=== PATIENT | male | born 2005 | race Two or more races ===

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

== ENCOUNTER → 2023-02-08 15:11 | Outpatient (BNVA) | payer OTHER, SELFPAY | PROVIDERS: Visit Provider Surgery | DX: R10.30 Lower abdominal pain, unspecified (principal) | CPT/HCPCS: 99202 ==

== ENCOUNTER → 2023-10-27 13:22 | Outpatient (BNVA) | payer OTHER, SELFPAY | PROVIDERS: PCP Pediatrics; Visit Provider Physician Assistant Surgical ==

== ENCOUNTER 2023-11-17 10:55 | Outpatient (AMB) | payer OTHER, SELFPAY ==
--- NOTE | 2023-11-17 10:57 | MHC.OFFVISWM ---
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 He heard about our program from his mother. His goal is to lose weight and achieve a healthy lifestyle. He reports first being concerned about his weight 1 year ago, highest weight to date was 256. Current weight is 251.8 pounds with a BMI of 36.1. He has tried multiple methods of weight loss including fad diets without permanent results. He lives with his mom. He works 4 days per week at [employer]. He wakes at:?530 am, and goes to bed at?10 pm. Dinner is at 530 pm. Breakfast: eggs or smoothie (frozen fruits (berries, dolores) w water) AM snack: skip Lunch: rice and beans w chicken or pasta PM snack: skip Dinner: like lunch After dinner: skip Other snacks: k pops or cookies Liquids: 120 oz water, no soda, no juice Alcohol/marijuana/tobacco intake: none Exercise: none, gym membership at [employer] GERD score: 16 ALEJANDRINA score: 0 ESS score: 12 QOL score: 99 PFSH Medical History Morbid obesity Abdominal pain Surgical History No pertinent past surgical history Social History Alcohol intake: never Patient Tobacco Use Status: Never used Tobacco Review of Systems Const All systems reviewed & are unremarkable except as noted in HPI and below Physical Exam Const General: cooperative, healthy appearing and no acute distress Orientation/consciousness: patient oriented x3 HEENT Head: Yes normal to inspection Ears: hearing grossly normal bilaterally General nose exam: Normal external nose present Face and sinus: Yes normal facial exam Eyes General: appearance normal, both eyes and all related structures Resp Effort & Inspection: normal respiratory effort Auscultation: clear to auscultation bilaterally Cardio Rate: regular rate Rhythm: regular rhythm Heart sounds: S1 normal heart sound present and S2 normal heart sound present GI Inspection: Yes normal to inspection, No distended and Yes obesity Palpation (GI): Soft to palpation, nontender and no guarding Auscultation: normal bowel sounds Skin General skin exam: no rashes or lesions noted Neuro General: patient oriented x3 Extrem General: No edema Psych Appearance: grossly normal Mental Status: mental status grossly normal Speech and movement: Normal speech and movement present Affect: normal affect Attitude: cooperative Assessment & Plan Assessment & Plan (1) Obesity (BMI 30-39.9): Code(s): E66.9 - Obesity, unspecified Plan: This is a?18 yo male who will start our MWL program.? He will be scheduled f/u appointments with our screening unit registered nurse and myself over the next 3 months. ? Adequate sleep of 7-8 hours per night discussed, awakening at 530 am and going to bed around 930-10 pm ? Purchase body composition analyzer scale ([employer] recommended) and check weight weekly. The best time to do this is first thing in the morning after going to the bathroom. 1. Nutritional counseling: Be sure to careful read the number of scoops per shake Start with 1 Celebrate Rebiuld shake ([facility] [employer], [employer], [employer]), (2 scoops in 16 oz unsweetened almond milk) at 630am-830am 2 protein bars (Celebrate bars at [facility] [employer], [employer], [employer]) First bar at 1030am-1230 pm. Second bar at 230pm-430pm Dinner at 530pm (9 forks of protein and 9 forks of salad/vegetables). Meal to include lean meat (beef, fish, pork, turkey, chicken), cooked vegetables or a salad with olive oil and/or fruits (berries, pears, apples, kiwi). Avoid salt, breads, potatoes, rice, pasta, desserts. cup of fresh fruit around 7 pm if you wish (berries, apples, pear, kiwi). Try to drink 80 oz of water daily and avoid soda and juices. ?2. Each shake would be drunk slowly, like coffee in a period of 2 hours. ?3. Cut each bar in 4 pieces and eat each piece in 30 min ?to make each bar last 2 hours. ?4. I emphasized the importance of measuring accurately the food portion and measure it carefully when serving the food on the plate ?5. The meal portions include 9 full-size forks of meat and 9 full-size forks of salad. You always eat the meat portion but you can replace up to half of the forks of salad/vegetables with rice, potatoes or pasta, or a fruit ?if you like. The less you do it the better weight loss will be. ?6. One full-size fork is what can be scooped on the fork without falling aside and not what can be bit with the fork. Use regular forks like those you find in a typical restaurant. ?7.? Please send me weight measurements as soon as possible and then once a week. Always include your diet and exercise plan. Alternatively come weekly at the office for weight checks and send me the measurements. ?8. Exercise counseling: Begin by watching a stretching for beginners video. Start slowly and begin to stretch your muscles. You should do this before and after each exercise session to prevent injury. Please return to [employer] gym near your home. Ask the field human resources manager or one of the trainers how to use the machines if you are unfamiliar with them. Start elliptical with a resistance of 2. Increase resistance by 1 every 3 min to your most comfortable resistance with a max resistance of 8. Reduce the resistance by 1 every 3 minutes back down to 2 and repeat cycles for 300 calories. Alternatively, start treadmill with a speed of 3.0 and incline of 0, increasing incline by 1 every 3 minutes to the highest comfortable level (max 8 for now) then decrease in the same fashion. Repeat process to a goal of 300 calories. Goal of 2000 calories burned or more weekly. You may also consider use of the stationary bike. The easiest would be to chose the fat-burn or interval training program on the machine and do this until you reach the 300 calorie goal. Alternatively, you can manually adjust the resistance in a similar fashion as mentioned above, (resistance of 2-8 with a goal speed of 12 mph). Tracking calories is essential. 9. Alternatively start walking outside daily, tracking calories with a goal of 300 calories per day, daily. You can download the [employer] which can track your time, distance and calories while walking outside. You press start in the [employer]ington when you start and then stop when you are finished. 10.? It is important to communicate by text weekly 11. I will order the home sleep study to look for sleep apnea (decrease in oxygen levels at night), given your complaints of snoring and daytime sleepiness. 12. Discussed and answered all questions regarding?obtained consent to participate in the [facility]?Registry. 13. Please follow the diet plan exactly, without any change. If you do not like something about the plan or you feel hungry, you need to communicate with me so I can help you revise the plan. You should not change the plan yourself. Text me at [phone] 14. Goal is to lose at least 10-12 pounds in the first month Patient is morbidly obese and is not considered stable at this time.?I spent a total of 70 minutes reviewing/updating records, examining the patient and counseling the patient on weight management as detailed above. Orders: Orders RT home sleep study Today E66.9 - Obesity, unspecified, R06.83 - Snoring, R40.0 - Somnolence Referrals Nutrition/Dietitian Referral E66.9 - Obesity, unspecified, R06.83 - Snoring, R40.0 - Somnolence Coding Level of Care Code New Pt Level 5 (23252) Diagnoses Obesity (BMI 30-39.9) E66.9 Time Spent (min) 70
[2023-11-17 11:04] VITALS: BP 128/89; PULSE 87; TEMP 36.3; O2SAT 95; BMI 36.1
== END 2023-11-17 12:01 | disposition home or self-care (01) ==
PROVIDERS: PCP Pediatrics; Visit Provider Physician Assistant Surgical
DX: E66.9 Obesity, unspecified (principal); Z68.36 Body mass index [BMI] 36.0-36.9, adult
CPT/HCPCS: 99205

== ENCOUNTER → 2023-11-17 10:55 | Outpatient (BNVA) | payer OTHER, SELFPAY | PROVIDERS: PCP Pediatrics; Visit Provider Physician Assistant Surgical | DX: E66.9 Obesity, unspecified (principal); Z68.36 Body mass index [BMI] 36.0-36.9, adult | CPT/HCPCS: 99202 ==

== ENCOUNTER 2024-01-25 08:24 | Emergency (ER) | payer OTHER, SELFPAY ==
[2024-01-25 08:27] VITALS: BP 122/75; PULSE 114; RESP 19; TEMP 36.6; O2SAT 99; BMI 35.9
[2024-01-25 08:42] LABS: MANUAL DIFF FLAG NO
[2024-01-25 08:49] LABS: Basophils Percent Auto 0.3 % (0-2); Eosinophils Absolute Auto 0.3 X10*3/uL (0.0-0.4); Hematocrit 45.6 % (42.0-52.0); Hemoglobin 16.4 g/dl (14.0-18.0); Imm Gran Abs Auto 0.02 X10*3/uL (0.00-0.03); Imm Gran Pct Auto 0.2 % (0.0-0.4); Lymphocytes Absolute Auto 0.9 X10*3/uL (1.2-4.9); Lymphocytes Percent Auto 10.4 % (20-40); Mean Corpuscular Hemoglobin 29.7 pg (27.0-33.0); Mean Corpuscular Volume 82.5 fL (80.0-98.0); Mean Platelet Volume 9.3 fL (9.4-12.4); Monocytes Absolute Auto 0.7 X10*3/uL (0.1-1.2); Monocytes Percent Auto 8.6 % (2-11); Neutrophils Absolute Auto 6.6 x10*3/uL (2.0-8.3); Neutrophils Percent Auto 77.5 % (45-73); Platelet Count 247 X10*3/uL (160-400); Red Blood Count 5.53 X10*6/uL (4.60-5.80); Red Cell Distribution Width 11.7 % (11.0-16.0); White Blood Count 8.6 X10*3/uL (4.8-10.8)
[2024-01-25 08:57] LABS: Alanine Aminotransferase 29 U/L (0-40); Albumin Level 4.7 g/dL (3.5-5.0); Alkaline Phosphatase 64 U/L (39-117); Anion Gap 13 (12-20); Aspartate Amino Transferase 27 U/L (5-37); Bilirubin Direct 0.4 mg/dL (0.0-0.5); Bilirubin Total 1.1 mg/dL (0.0-1.0); Blood Urea Nitrogen 10 mg/dL (9-16); Carbon Dioxide 25 mmol/L (22-29); Chloride 108 mmol/L (96-108); Creatinine Clr Calc Pharmacy 168.8; Estimated Glomerular Filt Rate > 60; Glucose Random 96 mg/dL (60-115); Lipase 13 U/L (8-78); Potassium 3.9 mmol/L (3.3-5.1); Sodium 142 mmol/L (135-145); Total Protein 7.9 g/dL (6.5-8.0)
[2024-01-25 09:08] LABS: IDNOW Serial# 08D9AD1C; Strep A Nucleic Acid Negative (Negative)
--- NOTE | 2024-01-25 09:24 | ED.GENADULT ---
HPI - General Adult General Chief complaint: Abdominal Pain Stated complaint: Headache, abd pain Time Seen by Provider: 01/25/24 09:24 Source: patient Mode of arrival: ambulatory Limitations: no limitations History of Present Illness HPI narrative: Patient is a 18-year-old male presenting to the emergency department with 2-3 days a of scratchy throat which he relates to seasonal allergies and epigastric pain. States that he woke at 3:00 a.m. this morning with epigastric abdominal pain, describes as burning sensation. Denies any nausea or vomiting. Denies any diarrhea or constipation. Denies fevers. Denies any chest pain or shortness of breath, palpitations. States he has been using loratadine for his allergy symptoms, also used an unknown inhaler which his grandmother brought over from [place]. Has not taken any other jjbu-xwl-vdoisdp medications for his symptoms. MD complaint: Epigastric pain Onset (ago): hour(s) Location: abdomen Radiation: non-radiation Quality: burning Pain Consistency: colicky Related Data Previous Rx's ?Medication ?Instructions ?Recorded rjlntynvwd-lavvgofxtwxmp-zgtchijm 1 tab PO Q6H PRN headache #10 tabs 04/16/22 50 mg-325 mg-40 mg tablet famotidine 20 mg tablet 20 mg PO BID #14 tabs 01/25/24 fluticasone furoate 27.5 2 spray intranasal DAILY #5.9 mL 01/25/24 mcg/actuation nasal spray,suspension (Flonase Sensimist) Allergies Allergy/AdvReac Type Severity Reaction Status Date / Time No Known Allergies Allergy Verified 01/25/24 08:29 [No Known Allergies*] Review of Systems Review of Systems: As per HPI. Yes all other systems are reviewed and are negative Constitutional: Constitutional: Reports as per HPI [facility] Past Medical History Medical History Morbid obesity Abdominal pain Surgical History No pertinent past surgical history Social History Social History Alcohol intake: never Patient Tobacco Use Status: Never used Tobacco Advance Directives: No Do you have a plan to hurt others: No Plan Physical Exam ED Vital Signs: Vital Signs - 24 hr 01/25/24 08:27 Temperature 98 F Pulse Rate 114 H Respiratory Rate 19 Blood Pressure 122/75 Pulse Oximetry 99 Oxygen Delivery Method Room Air BMI result Body Mass Index 35.9 Vital signs have been reviewed and appear to be correct. Blood pressure normal. Heart rate mildly tachycardic. Respiratory rate normal. Temperature normal. Oxygen saturation normal. Const General: cooperative, healthy appearing and no acute distress Orientation/consciousness: oriented to person, oriented to place, oriented to time and patient oriented x3 Limitations: no limitations HENMT Head: Yes normocephalic and Yes atraumatic Ears: external ears normal General nose exam: Normal external nose present Face and sinus: Yes face symmetric Mouth: oropharynx normal and moist mucous membranes Throat: Yes uvula midline Eyes Pupils: Equal, round and reactive pupils present Neck Neck: Yes normal visual inspection and Yes supple Resp Effort & Inspection: normal respiratory effort and able to speak in complete sentences Auscultation: clear to auscultation bilaterally Cardio Rate: regular rate Rhythm: regular rhythm Heart sounds: S1 normal heart sound present and S2 normal heart sound present GI Inspection: Yes normal to inspection Palpation (GI): Soft to palpation, Tenderness to palpation present (GI) in the epigastrum (mild), no guarding and No Rebound tenderness present Auscultation: normoactive bowel sounds General: Yes no CVA tenderness Back/Spine/Pelvis Back: no CVA tenderness Skin General skin exam: elasticity normal and turgor normal Neuro General: oriented to person, oriented to place, oriented to time, patient oriented x3, moves all extremities, no focal motor deficits and CN's II-XI intact bilaterally Cranial nerves: Yes Equal, round and reactive pupils present Cognition (Neuro): normal cognition Extrem General: Yes full ROM, Yes no pedal edema and Yes no calf tenderness Psych Mental Status: mental status grossly normal Affect: normal affect Thought process: Normal thought process present Medications Administered Discontinued Medications Generic Name Dose Route Start Last Admin Trade Name Famq PRN Reason Stop Dose Admin Al Hydroxide/Mg Hydroxide 15 ml 01/25/24 09:59 01/25/24 11:07 Magnesium Hydrox/Alum Hydrox 30 Ml Oral.Susp PO 01/25/24 10:00 15 ml ONCE ONE Administration Lidocaine HCl 5 ml 01/25/24 09:59 01/25/24 11:07 Lidocaine Hcl Viscous 2 % 15 Ml Solution MUCOUS MEM 01/25/24 10:00 5 ml ONCE ONE Administration Medical Decision Making Medical Decision Making [facility] Narrative: Patient is a 18-year-old male presenting to the emergency department with 2-3 days a of scratchy throat which he relates to seasonal allergies as well as epigastric abdominal pain. On exam patient is awake, A+Ox3, VS WNL, afebrile, normal neurological exam without focal deficits, physical exam findings as above. Given reported symptoms and physical exam findings, initial differential includes viral illness, strep pharyngitis, allergic rhinitis, gastritis, GERD, PUD. Labs unremarkable. Viral serology negative. Epigastric pain improved with medications given in the emergency department. Feel symptoms are likely due to gastritis. Will send prescription for famotidine. Will also send prescription for Flonase as patient is unsure what type of nasal inhaler he is using. Advised patient to discontinue the previous inhaler. Instructed patient to follow-up with primary care provider. Return precautions discussed at bedside. Patient verbalized understanding of and agreement with plan. Differential Diagnosis Differential Diagnoses: The differential diagnosis associated with the presentation includes As per MDM. Lab Data [facility] Lab Attestation statement: I reviewed the patient's lab results. As per [facility]. 01/25/24 08:39 01/25/24 08:39 Labs: Lab Results 01/25/24 Range/Units 08:39 WBC 8.6 (4.8-10.8) X10*3/uL RBC 5.53 (4.60-5.80) X10*6/uL Hgb 16.4 (14.0-18.0) g/dl Hct 45.6 (42.0-52.0) % MCV 82.5 (80.0-98.0) fL MCH 29.7 (27.0-33.0) pg MCHC 36.0 (31.0-36.0) g/dl RDW 11.7 (11.0-16.0) % Plt Count 247 (160-400) X10*3/uL MPV 9.3 L (9.4-12.4) fL Immature Gran % (Auto) 0.2 (0.0-0.4) % Neut % (Auto) 77.5 H (45-73) % Lymph % (Auto) 10.4 L (20-40) % [place] % (Auto) 8.6 (2-11) % Eos % (Auto) 3.0 (0-4) % Baso % (Auto) 0.3 (0-2) % Lymph # (Auto) 0.9 L (1.2-4.9) X10*3/uL [place] # (Auto) 0.7 (0.1-1.2) X10*3/uL Eos # (Auto) 0.3 (0.0-0.4) X10*3/uL Baso # (Auto) 0.0 (0.0-0.2) X10*3/uL Abs Immat Gran (auto) 0.02 (0.00-0.03) X10*3/uL Absolute Neuts (auto) 6.6 (2.0-8.3) x10*3/uL Absolute Nucleated RBC 0.000 (0.0-0.012) X10*3/uL Nucleated RBC % (auto) 0.0 (0.0-0.2) /100WBC Sodium 142 (135-145) mmol/L Potassium 3.9 (3.3-5.1) mmol/L Chloride 108 (96-108) mmol/L Carbon Dioxide 25 (22-29) mmol/L Anion Gap 13 (12-20) BUN 10 (9-16) mg/dL Creatinine 0.88 (0.5-1.4) mg/dL Estim Creat Clear Calc 168.8 Estimated GFR > 60 Random Glucose 96 (60-115) mg/dL Calcium 10.0 D (8.4-10.2) mg/dL Total Bilirubin 1.1 H (0.0-1.0) mg/dL Direct Bilirubin 0.4 (0.0-0.5) mg/dL AST 27 (5-37) U/L ALT 29 (0-40) U/L Alkaline Phosphatase 64 (39-117) U/L Total Protein 7.9 (6.5-8.0) g/dL Albumin 4.7 (3.5-5.0) g/dL Lipase 13 (8-78) U/L Influenza Type A (PCR) NEGATIVE (Negative) Influenza Type B (PCR) NEGATIVE (Negative) RSV RNA Qual (PCR) NEGATIVE (Negative) SARS-CoV-2 RNA (RT-PCR) NEGATIVE (Negative) S. pyogenes GrpA MANJEET Negative (Negative) External Record Review External record reviewed: Inpatient record, Office record and Outpatient record Prescription Management I considered prescription management with: Other Discharge Plan Discharge Clinical Impression: Gastritis, Seasonal allergic reaction Patient Disposition: Home, Self-Care Instructions: Gastritis (DC), Allergic Rhinitis (DC), Allergies (ED), How to Use Nasal [place] (ED) Additional Instructions: You were evaluated in the emergency department today for sore throat and abdominal pain. Your viral and strep testing was negative. Your symptoms improved with medication in the ED. You are being prescribed famotidine which you should take as prescribed for your abdominal pain. You are being prescribed Flonase for her seasonal allergies. Please follow-up your primary care provider. Return to the emergency department with new or worsening symptoms. Prescriptions: New Flonase Sensimist 27.5 mcg/actuation spray,suspension 2 spray intranasal DAILY Qty: 5.9 0RF Rx Instructions: into each nostril famotidine 20 mg tablet 20 mg PO BID Qty: 14 0RF No Action uaspbdmiov-uxzuctrvlvoyr-dtau 50-325-40 mg tablet 1 tab PO Q6H PRN (Reason: headache) Qty: 10 0RF Print Language: Mozambican
[2024-01-25 09:38] LABS: Influenza A PCR NEGATIVE (Negative); Influenza B PCR NEGATIVE (Negative); Resp Syncy Virus RNA Qual PCR NEGATIVE (Negative); SARS COV2 PCR INHOUSE NEGATIVE (Negative)
[2024-01-25] MEDS: Lidocaine HCl Viscous 2 % 15 ML SOLUTION 5 ML MUCOUS MEM (11:07)
[2024-01-25] MEDS: Magnesium Hydrox/Alum Hydrox 30 ML ORAL.SUSP 15 ML PO (11:07)
[2024-01-25 12:54] VITALS: BP 122/75; PULSE 114; RESP 19; TEMP 36.6; O2SAT 99
== END 2024-01-25 12:55 | disposition home or self-care (01) ==
PROVIDERS: Emergency Provider Emergency Medicine; PCP Pediatrics
DX: K29.70 Gastritis, unspecified, without bleeding (principal); J30.2 Other seasonal allergic rhinitis; R51.9 Headache, unspecified; R10.13 Epigastric pain; Z11.52 Encounter for screening for COVID-19; Z20.822 Contact with and (suspected) exposure to COVID-19; Z79.899 Other long term (current) drug therapy
CPT/HCPCS: 0241U; 36415; 80048; 80076; 83690; 85025; 87651; 99282; 99283

== ENCOUNTER 2024-01-30 14:30 | Emergency (ER) | payer OTHER, SELFPAY | END 2024-01-30 16:48 | disposition left against medical advice (07) | PROVIDERS: Emergency Provider Emergency Medicine | DX: Z53.21 Procedure and treatment not carried out due to patient leaving prior to being seen by health care provider (principal); R53.81 Other malaise ==

== ENCOUNTER 2024-04-27 08:42 | Emergency (ER) | payer OTHER, SELFPAY ==
[2024-04-27 08:52] VITALS: BP 125/72; PULSE 119; RESP 18; TEMP 37.7; O2SAT 98; BMI 34.9
[2024-04-27 09:20] LABS: IDNOW Serial# 08D9AD1C; Strep A Nucleic Acid Negative (Negative)
--- NOTE | 2024-04-27 09:21 | ED.URI ---
HPI - URI/Sore Throat General Chief Complaint: Upper Respiratory Symptoms Stated Complaint: URI Time Seen by Provider: 04/27/24 09:03 Source: patient Mode of arrival: ambulatory Limitations: no limitations History of Present Illness HPI Narrative: Patient is a 18-year-old male who presents emergency department for evaluation of multiple upper respiratory symptoms including intermittent headache, subjective fever but has not checked a temperature, sore throat, ear pain without any drainage or changes in hearing, body aches, intermittent nonproductive cough over the past 4 days. Denies any known sick contacts. Reports that he attempted to use Tylenol 3 days ago without improvement in his symptoms, last night took a single dose of Mucinex without improvement in his symptoms. Denies dizziness, neck pain, neck stiffness, chest pain, shortness of breath, difficulty breathing, nausea, vomiting, abdominal pain, numbness or tingling of the extremities, genitourinary symptoms. Related Data Previous Rx's ?Medication ?Instructions ?Recorded nepstfrcib-qadkywwlibsvh-uckerxan 1 tab PO Q6H PRN headache #10 tabs 04/16/22 50 mg-325 mg-40 mg tablet famotidine 20 mg tablet 20 mg PO BID #14 tabs 01/25/24 fluticasone furoate 27.5 2 spray intranasal DAILY #5.9 mL 01/25/24 mcg/actuation nasal spray,suspension (Flonase Sensimist) Allergies Allergy/AdvReac Type Severity Reaction Status Date / Time No Known Allergies Allergy Verified 04/27/24 08:55 [No Known Allergies*] Review of Systems Review of Systems: Yes all other systems are reviewed and are negative PMFSH Past Medical History Attestation statement: The following information was validated with the patient. Source: old records reviewed Medical History Morbid obesity Abdominal pain Surgical History No pertinent past surgical history Social History Social History Alcohol intake: never Patient Tobacco Use Status: Never used Tobacco Advance Directives: No Advance Directives Information Provided: No Physical Exam Vital Signs: Vital Signs: Last Vital Signs Temp 99.8 F 04/27/24 10:36 Pulse 104 H 04/27/24 10:36 Resp 18 04/27/24 10:36 BP 114/61 04/27/24 10:36 Pulse Ox 95 04/27/24 10:36 O2 Del Method Room Air 04/27/24 10:36 BMI result Body Mass Index 34.9 Appearance: Alert.?Oriented to person, place and time. No acute distress.?Normal affect. Eyes: Pupils equal, round and reactive to light.? ENT: TM normal bilaterally. Pharynx erythematous with 1+ tonsillar hypertrophy bilaterally. Uvula midline. No trismus. No drooling. Neck: Normal inspection.? Neck supple.??No cervical adenopathy CVS: Heart sounds normal. Normal heart rate and rhythm.? Pulses normal.?? Respiratory: No respiratory distress.? Lung sounds clear to auscultation bilaterally?? Abdomen: Soft and non-tender. Normoactive bowel sounds. Skin: Skin warm and dry.? Normal skin color.? ? Extremities: No lower extremity edema.? Neuro: Moves all extremities spontaneously. Sensation intact bilaterally. No motor deficits. Ambulates with normal steady gait. Medications Administered Discontinued Medications Generic Name Dose Route Start Last Admin Trade Name Freq PRN Reason Stop Dose Admin Acetaminophen 975 mg 04/27/24 09:19 04/27/24 09:38 Acetaminophen 325 Mg Tablet PO 04/27/24 09:20 975 mg ONCE ONE Administration Ibuprofen 400 mg 04/27/24 09:19 04/27/24 09:38 Ibuprofen 400 Mg Tablet PO 04/27/24 09:20 400 mg ONCE ONE Administration Medical Decision Making Medical Decision Making [facility] Narrative: Patient is a 18-year-old male presenting for evaluation of upper respiratory symptoms. COVID-19 testing negative. Influenza testing negative. Strep a testing negative, no evidence of [employer]. No evidence acute otitis media. Sutter spot negative. At this time history and physical exam not consistent with ACS/PE/pneumonia. Well-appearing, nontoxic, afebrile, no tachypnea/hypoxia. Noted to have tachycardia, which in comparison with previous visits he has also had tachycardic, he admits to feeling anxious when he is in the hospital. He was medicated with acetaminophen and ibuprofen, concern for low-grade temperature at 99.8 degrees which may continue to trend upwards, may also provide analgesia. Speaking clear full sentences, ambulatory with steady gait. Discussed conservative treatment including rest, hydration, Tylenol/ibuprofen as needed for fever and body aches, saline nasal spray, humidifier, pewf-rta-xjdaxca cold medication. Advised to follow-up with primary care provider as needed, discussed reasons to return back to the emergency department. All questions were answered. Patient discharged home in stable condition. Differential Diagnosis Differential Diagnoses: The differential diagnosis associated with the presentation includes ( See narrative above) Admission/Observation Consideration of admission/observation: Escalation of care including admission/observation considered ( see narrative above) Lab Data MDM Lab Attestation statement: I reviewed the patient's lab results. ( see narrative above) Labs: Lab Results 04/27/24 04/27/24 Range/Units 09:05 10:02 Monoscreen Negative (Negative) Influenza Type A (PCR) NEGATIVE (Negative) Influenza Type B (PCR) NEGATIVE (Negative) RSV RNA Qual (PCR) NEGATIVE (Negative) SARS-CoV-2 RNA (RT-PCR) NEGATIVE (Negative) S. pyogenes GrpA MANJEET Negative (Negative) Prescription Management I considered prescription management with: Pain Medication ( acetaminophen/ibuprofen) Discharge Plan Discharge Clinical Impression: Upper respiratory infection Patient Disposition: Home, Self-Care Instructions: Upper Respiratory Infection (ED) Additional Instructions: Be sure to rest, stay well hydrated drinking plenty of fluids, eat small frequent meals. Tylenol/ibuprofen can be used as needed for fever/pain. Xuzn-yrp-zsdvkuv cold medications may be helpful as well for symptoms. Saline nasal spray, humidifier may be helpful for nasal congestion. You may return to the emergency department with any new or worsening symptoms or concerns. Follow-up with your primary care provider as needed. Should remain out of school/ work until symptoms have resolved and have been without a fever for 24 hours without the use of Tylenol or ibuprofen. Prescriptions: No Action haqediuhaq-qqbpnrloxluxd-szjb 50-325-40 mg tablet 1 tab PO Q6H PRN (Reason: headache) Qty: 10 0RF Flonase Sensimist 27.5 mcg/actuation spray,suspension 2 spray intranasal DAILY Qty: 5.9 0RF Rx Instructions: into each nostril famotidine 20 mg tablet 20 mg PO BID Qty: 14 0RF Referrals: Physician,Unknown J [Primary Care Provider] - Stand Alone Forms: Work/School Release Interventions: ED Discharge Assessment Last Done: 04/27/24 10:36 Discharge Date/Time: 04/27/24 10:36 Print Language: Azeri
[2024-04-27] MEDS: Acetaminophen 325 MG TABLET 975 MG PO (09:38)
[2024-04-27] MEDS: Ibuprofen 400 MG TABLET PO (09:38)
--- NOTE | 2024-04-27 09:39 | PC.NURSE ---
pt medicated for 10 generalized pain
[2024-04-27 09:52] LABS: Influenza A PCR NEGATIVE (Negative); Influenza B PCR NEGATIVE (Negative); Resp Syncy Virus RNA Qual PCR NEGATIVE (Negative); SARS COV2 PCR INHOUSE NEGATIVE (Negative)
[2024-04-27 10:21] LABS: Monotest Negative (Negative)
[2024-04-27 10:25] VITALS: BP 114/61; PULSE 104; RESP 18; TEMP 37.7; O2SAT 95
[2024-04-27 10:36] VITALS: BP 114/61; PULSE 104; RESP 18; TEMP 37.7; O2SAT 95
== END 2024-04-27 10:36 | disposition home or self-care (01) ==
PROVIDERS: Nurse Practitioner Family; Emergency Provider Emergency Medicine
DX: J06.9 Acute upper respiratory infection, unspecified (principal); R05.9 Cough, unspecified; J02.9 Acute pharyngitis, unspecified; Z03.818 Encounter for observation for suspected exposure to other biological agents ruled out; Z79.899 Other long term (current) drug therapy
CPT/HCPCS: 0241U; 36415; 86308; 87651; 99283